=== PATIENT | male | born 1995 | race Caucasian/White ===

== ENCOUNTER 2017-05-23 01:01 | Observation (INO) | payer SELFPAY ==
[~2017-05-23] VITALS: Ht 182.9 cm; Wt 126.2 kg
[2017-05-23 02:38] LABS: BASO # 0.1 (0.0-0.2); BASO % 0.4 % (0.0-2.0); EOS # 0.1 (0.0-0.7); EOS % 0.7 % (0-4.0); GRAN # 13.9 (1.4-6.5); GRAN % 84.6 % (42.2-75.2); HEMATOCRIT 50.8 % (42.0-52.0); LYMPH # 1.6 (1.2-3.4); LYMPH % 9.7 % (20.0-51.0); MEAN CELL VOLUME 87 fl (80.0-100.0); MEAN CORPUSCULAR HEMOGLOBIN 29 pg (27.0-31.0); MEAN CORPUSCULAR HGB CONC 34 g/dl (33.0-37.0); MEAN PLATELET VOLUME 10.9 fl (7.4-10.4); MONO # 0.7 (0.1-0.6); MONO % 4.1 % (1.7-9.3); PLATELET COUNT 224 K/mm3 (130-400); RED BLOOD COUNT 5.84 M/mm3 (4.20-5.60); WHITE BLOOD COUNT 16.5 K/mm3 (4.8-10.8)
[2017-05-23 02:44] LABS: ADJUSTED CALCIUM 8.8 mg/dL (8.4-10.2); ALBUMIN 4.6 gm/dL (3.5-5.0); BILIRUBIN,TOTAL 1.1 mg/dL (0.0-1.0); CALCIUM 9.3 mg/dL (8.4-10.2); CREATININE, serum 0.93 mg/dL (0.66-1.25); POTASSIUM 3.7 mmol/L (3.4-5.0); TOTAL PROTEIN 7.5 gm/dL (6.4-8.2)
[2017-05-23 04:34] LABS: AMPHETAMINE URINE NEGATIVE; BARBITURATES URINE NEGATIVE; BENZODIAZEPINES URINE POSITIVE; BUPRENORPHINE URINE NEGATIVE; METHADONE URINE NEGATIVE; OPIATES URINE NEGATIVE; OXYCODONE URINE NEGATIVE; PROPOXYPHENE URINE NEGATIVE; TRICYCLIC ANTIDEPRESS URINE NEGATIVE
[2017-05-23 04:49] LABS: PHENCYCLIDINE URINE NEGATIVE; THC CANNABINOIDS URINE NEGATIVE
[2017-05-23 05:33] VITALS: BP 113/49; PULSE 63; TEMP 100.2
[2017-05-23 09:20] VITALS: BP 115/60; PULSE 123; TEMP 98.7
[2017-05-23 12:12] LABS: BASO # 0.1 (0.0-0.2); BASO % 0.3 % (0.0-2.0); EOS % 0.1 % (0-4.0); GRAN % 83.4 % (42.2-75.2); HEMATOCRIT 43.3 % (42.0-52.0); LYMPH % 10.3 % (20.0-51.0); MEAN CELL VOLUME 87 fl (80.0-100.0); MEAN CORPUSCULAR HEMOGLOBIN 29 pg (27.0-31.0); MEAN CORPUSCULAR HGB CONC 34 g/dl (33.0-37.0); MEAN PLATELET VOLUME 10.8 fl (7.4-10.4); MONO % 5.3 % (1.7-9.3); PLATELET COUNT 165 K/mm3 (130-400); WHITE BLOOD COUNT 19.1 K/mm3 (4.8-10.8)
[2017-05-23 12:14] LABS: CALCIUM 8.7 mg/dL (8.4-10.2); CREATININE, serum 0.92 mg/dL (0.66-1.25); POTASSIUM 3.7 mmol/L (3.4-5.0)
[2017-05-23 12:20] LABS: HEMOGLOBIN 14.6 g/dl (13.5-18.0)
[2017-05-23 14:00] VITALS: BP 114/60; PULSE 79; TEMP 97.7
[2017-05-23 17:52] VITALS: BP 112/73; PULSE 80; TEMP 97.8
[2017-05-23 21:38] VITALS: BP 116/71; PULSE 84; TEMP 97.8
[2017-05-24 01:13] VITALS: BP 123/81; PULSE 69; TEMP 98.2
[2017-05-24 05:40] VITALS: BP 135/67; PULSE 102; TEMP 98.8
[2017-05-24 09:01] VITALS: BP 107/54; PULSE 89; TEMP 98.7
== END 2017-05-24 12:50 | disposition home or self-care (01) ==
LOC: COL.ER 01:01 → SURG 03:55
PROVIDERS: Family Medicine; Surgery
DX: S02.2XXA Fracture of nasal bones, initial encounter for closed fracture (principal); K08.119 Complete loss of teeth due to trauma, unspecified class; Y09 Assault by unspecified means; Y92.89 Other specified places as the place of occurrence of the external cause
CPT/HCPCS: G0378; J0690; J7030; J7050; Q9967

== ENCOUNTER → 2018-05-26 | Outpatient (CLI) | payer BC ==
[2018-05-26 17:35] LABS: CALCIUM 9.2 mg/dL (8.4-10.2); CREATININE, serum 1.06 mg/dL (0.66-1.25); TOTAL PROTEIN 7.1 gm/dL (6.4-8.2)
[2018-05-26 17:51] LABS: BILIRUBIN UNCONJUGATED 0.6 mg/dL (0.0-1.1); BILIRUBIN,DIRECT 0.2 mg/dL (0.0-0.4); BILIRUBIN,TOTAL 0.8 mg/dL (0.0-1.0)
== END ==
LOC: COL.LAB 17:01
PROVIDERS: Nurse Practitioner Family
DX: Z51.81 Encounter for therapeutic drug level monitoring (principal)

== ENCOUNTER 2019-03-28 09:30 | Outpatient (RCR) | payer BC | END 2019-04-12 | disposition home or self-care (01) | LOC: WSC | DX: G37.3 Acute transverse myelitis in demyelinating disease of central nervous system (principal) ==